=== PATIENT | female | born 1980 | race African-American/Black ===

== ENCOUNTER 2025-03-12 10:01 | Inpatient (IN) | payer BC, SELFPAY ==
[2025-03-11 10:58] LABS: Hematocrit 39.7 % (34.9-44.5); Hemoglobin 12.0 g/dL (12.0-15.5); Platelet Count 342 10x3/uL (150-450)
[2025-03-11 11:39] LABS: Syphilis Antibody Index 0.04 S/CO (<1.00 Non-Reactive)
[2025-03-11 11:41] LABS: HIV (1/2) Antibody/Antigen Non-Reactive (NonReactive); HIV 1/2 INDEX 0.11 S/CO (<1.00); Hep B Surf Ag Non-Reactive S/CO (NonReactive)
[2025-03-12] MEDS ORDERED: Bicitra 30 ML UDCUP PO PRN (10:45)
[2025-03-12] MEDS ORDERED: hydrALAZINE 20 MG/ML VIAL SLOW IVP PRN ×2 (10:46→14:45)
[2025-03-12] MEDS ORDERED: Diphenoxylate HCl/Atropine Tablet PO PRN ×2 (10:46)
[2025-03-12] MEDS ORDERED: Ondansetron PF 4 MG/2 ML Vial IVP PRN ×2 (10:46→11:47)
[2025-03-12] MEDS ORDERED: Tranexamic Acid 1,000 MG/10 ML VIAL IVP PRN (10:46)
[2025-03-12] MEDS ORDERED: Methylergonovine 0.2 MG/ML VIAL IM PRN ×2 (10:46→14:45)
[2025-03-12] MEDS ORDERED: Acetaminophen 500 MG TAB PO PRN (10:46)
[2025-03-12 10:58] VITALS: BMI 37.4
[2025-03-12] MEDS ORDERED: Oxytocin 30 units/NS 500 ML 500 ML IV SCH ×2 (11:00→14:45)
[2025-03-12] MEDS ORDERED: Meperidine HCl/PF 25 MG (1 mL) VIAL SLOW IVP PRN (11:47)
[2025-03-12] MEDS ORDERED: Communication Order-Pharmacy FS SCH (12:00)
[2025-03-12] MEDS: Famotidine/PF 20 mg/2ml Vial SLOW IVP PRN (12:08)
[2025-03-12] MEDS ORDERED: Simethicone Chewable 80 MG TAB PO PRN (14:45)
[2025-03-12] MEDS ORDERED: Acetaminophen 325 MG TAB PO PRN (14:45)
[2025-03-12] MEDS: Oxytocin 10 UNITS/ML VIAL ONE (16:26)
[2025-03-12] MEDS: Dexamethasone 10 MG/ML VIAL ONE (16:26)
[2025-03-12] MEDS: Phenylephrine 40 MG/NS 250 ML 500 ML ONE (16:26)
[2025-03-12] MEDS: Meperidine HCl/PF 25 MG (1 mL) VIAL ONE (16:27)
[2025-03-12] MEDS: Ketorolac Tromethamine 30 MG (1 mL) VIAL ONE (16:27)
[2025-03-12] MEDS: Ondansetron PF 4 MG/2 ML Vial ONE (16:27)
[2025-03-12] MEDS: Boostrix 0.5 ML (Tdap) VIAL (>/=7 yrs of age) IM ONE (18:21)
[2025-03-12] MEDS: Ondansetron PF 4 MG/2 ML Vial IVP PRN (18:26)
[2025-03-12] MEDS: Ketorolac Tromethamine 30 MG (1 mL) VIAL IVP SCH (18:27)
[2025-03-12] MEDS: Ferrous Sulfate 325 MG TAB PO SCH (21:50)
[2025-03-13] MEDS: diphenhydrAMINE 50 MG/ML VIAL IVP PRN (00:35)
[2025-03-13 07:13] LABS: Hematocrit 31.5 % (34.9-44.5); Hemoglobin 9.9 g/dL (12.0-15.5); Mean Corpuscular Hemoglobin 25.8 pg (27.0-33.0); Mean Corpuscular Volume 82.2 fL (81.6-98.3); Platelet Count 288 10x3/uL (150-450); Red Blood Cell (RBC) Count 3.83 10x6/uL (3.90-5.03); White Blood Cell (WBC) Count 16.72 10x3/uL (3.5-10.5)
[2025-03-13] MEDS: HYDROcodone/Acetaminophen 5/325 mg Tablet PO PRN (08:23)
[2025-03-13] MEDS: HYDROcodone/Acetaminophen 5/325 mg Tablet PO SCH ×2 (10:43→15:01)
[2025-03-13] MEDS ORDERED: HYDROcodone/Acetaminophen 5/325 mg Tablet PO SCH (13:45)
[2025-03-13] MEDS: diphenhydrAMINE 25 MG CAP PO PRN (15:43)
[2025-03-13] MEDS: Ibuprofen 800 MG TAB PO SCH (21:04)
[2025-03-14] MEDS: HYDROcodone/Acetaminophen 5/325 mg Tablet PO PRN ×2 (00:05→22:37)
[2025-03-15 08:37] VITALS: BP 135/75; TEMP 98
== END 2025-03-15 14:25 | disposition home or self-care (01) | DRG 787 ==
LOC: CSHLD 10:01 → CSHPED 16:05
PROVIDERS: ADMIT Obstetrics & Gynecology; ATTEND Obstetrics & Gynecology
PROC: 10D00Z1 Extraction of Products of Conception, Low, Open Approach (ICD-10-PCS; principal; 2025-03-12)
PROC: 3E03329 Introduction of Other Anti-infective into Peripheral Vein, Percutaneous Approach (ICD-10-PCS; principal; 2025-03-12)
PROC: 4A1HXCZ Monitoring of Products of Conception, Cardiac Rate, External Approach (ICD-10-PCS; principal; 2025-03-12)
DX: O34.211 Maternal care for low transverse scar from previous cesarean delivery (principal); G12.1 Other inherited spinal muscular atrophy; O99.834 Other infection carrier state complicating childbirth; O99.214 Obesity complicating childbirth; O99.02 Anemia complicating childbirth; D56.3 Thalassemia minor; D25.9 Leiomyoma of uterus, unspecified; O99.892 Other specified diseases and conditions complicating childbirth; Z86.32 Personal history of gestational diabetes; Z3A.39 39 weeks gestation of pregnancy; Z37.0 Single live birth
CPT/HCPCS: 36415; 51702; 85014; 85018; 85027; 85049; 86780; 86850; 86900; 86901; 87340; 87389; J1100; J1200; J1885; J2175; J2274; J2405; J2590; J3490